=== PATIENT | male | born 1945 | race Caucasian/White ===

== ENCOUNTER 2019-08-16 10:10 | Emergency (ER) | payer MEDICARE, SELFPAY ==
[2019-08-16 10:11] VITALS: BP 134/78; PULSE 95; RESP 18; TEMP 36.5; O2SAT 96; BMI 31.7
--- NOTE | 2019-08-16 10:21 | VDLE_ITS ---
Reason For Study: Swelling RIGHT LEFT GSV is normal. CFV is compressible, spontaneous, phasic, CFV is compressible, spontaneous, phasic, competent, and demonstrates normal competent and demonstrates normal augmentation. augmentation. PTV is compressible. RT PerV is compressible. Rt FV prox-distal, Rt PopV, Rt T/P Trunk, and Rt GastrocV are dilated and non compressible consistent with acute DVT. Procedure Exam performed portable in ED. A preliminary report was called and/or faxed to Dr. Mittal. Interpretation Summary Right great saphenous vein appears patent and compressible segmentally. Acute deep venous thrombosis right femoral, popliteal, tibioperoneal trunk, and gastrocnemius veins Patent and compressible left common femoral vein Ordering Physician: Austin Mittal Referring Physician: Silvestre Contreras Performed By: Yvette Barrera RDCS, RVT
--- NOTE | 2019-08-16 10:22 | ED.DCSUM_ITS ---
History of Present Illness Chief Complaint: Lower Extremity Injury Informant: Patient Onset: Weeks - 3-4 Context: Onset with activity - seemed to start after stepped wrong, kind of twisted my ankle but not bad Timing: Continuous Quality of Pain: Aching Location: right ankle and up into calf/popliteal space Current Severity: Mild Maximum Severity: Moderate Worsened by: walking Relieved by: rest Associated Symptoms: - - swelling. Negative for: Parasthesia, Weakness, Loss of Funtion Narrative: Patient states he was at his home about 4 weeks ago and thinks he stepped wrong and may be twisted his ankle. He states that he did not twist it was not bad, did not prevent him from walking on it since then, but he has had swelling in the ankle since then, that seemed to go up my calf. He is having discomfort when he walks but not bad. He denies any thoracic symptom such as chest pain, pleuritic discomfort, shortness of breath, palpitations, lightheadedness or near syncope. He states he had a pulmonary embolism 4 years or so ago which was postsurgical. He is no longer on anticoagulants. He has had no recent long trips/travel, hospitalization, or surgery. Never had a blood clot in his leg before that he knows of. No other injury or foreign bodies to the right lower extremity. - Past Medical History (1) HTN (hypertension) Status: Chronic (2) Diabetes type 2, controlled Status: Chronic (3) BPH (benign prostatic hyperplasia) Status: Chronic Past Medical History - Allergies and Home Meds Allergies/Adverse Reactions: Allergies Penicillins [PCN] Allergy (Verified 08/16/19 10:13) Unknown azithromycin [From Zithromax] Adverse Reaction (Verified 08/16/19 10:13) Upset Stomach erythromycin base Adverse Reaction (Verified 08/16/19 10:13) Upset Stomach prednisone Adverse Reaction (Verified 08/16/19 10:13) Other Primary Care Physician: Silvestre Contreras MD [Primary Care Provider] - Surgical History: cholecystectomy Lives: Spouse/ Significant Other Smoking Status: Former smoker Review of Systems General: Denies: Chills, Fever, Sweats Eyes: Denies: Visual changes - bilaterally, Diplopia ENT: Denies: Rhinorrhea, Sore throat Cardiovascular: Denies: Chest pain, Palpitations Respiratory: Denies: Dyspnea, Cough, Dyspnea on exertion Gastrointestinal: Denies: Abdominal pain, Nausea, Vomiting, Diarrhea, Melena, Hematochezia Genitourinary: Denies: Dysuria, Hematuria, Frequency Musculoskeletal: Reports: Swelling, Extremity Pain. Denies: Back pain Skin: Denies: Rash, Wounds Neurological: Denies: Headache, Weakness, Numbness Physical Exam Vital Signs/Narrative: Vital Signs Temp Pulse Resp BP Pulse Ox 08/16/19 10:11 97.7 F L 95 18 134/78 H 96 Inital Vital Signs reviewed: Yes - Extremity Exam Right Tib fib: Edema - to knee, trace. asymmetric c/w contralateral leg, which appears normal w/o edema., - - mild calf tenderness. no palpable cords. thigh NT, no cord, benign. Right Ankle: Negative for: Limited ROM - NT all bony prominences. no swelling to joint. Right Foot: Negative for: Limited ROM - NT throughout, including base 5th MT General: Well nourished, Well developed Head: Normocephalic, Atraumatic Cardiovascular: Regular rate, Regular rhythm. Negative for: Tachycardia Respiratory: No distress, CTA bilaterally Skin: Normal color - no celllulitis appearance RLE, No rash, No Trauma Neurological: Alert, Oriented x3, Cranial nerves II-XII grossly intact, Normal Strength, Normal Sensation Psychological: Normal affect, Normal Mood Diagnostic/Tx/Re-eval - Medical Decision Making Duplex Doppler ultrasound of the right lower extremity was obtained and shows DVT in multiple veins including the femoral. Consistent with acute DVT. We will start him on Xarelto. He has no signs or symptoms of pulmonary embolus right now. We discussed reasons to return, and the fact that he needs to fill the prescription and start it tonight after we give him the initial pill this morning. He will follow-up with his doctor as an outpatient. We discussed avoiding massaging his leg and compression stockings but he is still able to walk and do gentle leg exercises that he wishes to do. ED Disposition - Plan for ED Patient: Disposition: Home or Assisted Living Diagnosis: Acute deep vein thrombosis (DVT) of right lower extremity Instructions: Deep Vein Thrombosis Prescriptions: Rivaroxaban [Xarelto] 1 ea PO BID #1 [id number] [facility]: [facility] [place] [address] Referrals: Silvestre Contreras MD [Primary Care Provider] - 1-2 Weeks
[2019-08-16] MEDS: Rivaroxaban 15 MG Tablet PO (12:49)
[2019-08-16 12:56] VITALS: BP 140/72; PULSE 69; RESP 16; O2SAT 96
--- NOTE | 2019-08-16 12:57 | ED.RN ---
REVIEWED D/C INSTRUCTIONS, FOLLOW UP CARE, PRESCRIPTION, AND S/S THAT WOULD WARRANT A RETURN TO THE ED WITH PT. PT VERBALIZED AN UNDERSTANDING AND DENIES FURTHER QUESTIONS FOR THIS RN. PT SKIN P/W/D, RESP EVEN AND UNLABORED, PT A&O X 3, NO DISTRESS NOTED. PT AMBULATED OUT OF ED, GAIT STEADY.
== END 2019-08-16 12:58 | disposition home or self-care (01) ==
PROVIDERS: Emergency Provider Emergency Medicine; Family Provider Family Medicine; PCP Family Medicine
DX: I82.411 Acute embolism and thrombosis of right femoral vein (principal); I82.441 Acute embolism and thrombosis of right tibial vein; I82.451 Acute embolism and thrombosis of right peroneal vein; I82.461 Acute embolism and thrombosis of right calf muscular vein; I10 Essential (primary) hypertension; E11.9 Type 2 diabetes mellitus without complications; N40.0 Benign prostatic hyperplasia without lower urinary tract symptoms; Z87.891 Personal history of nicotine dependence; Z79.84 Long term (current) use of oral hypoglycemic drugs; Z79.899 Other long term (current) drug therapy
CPT/HCPCS: 93971; 99283